=== PATIENT | female | born 1990 | race Caucasian/White ===

== ENCOUNTER 2016-05-08 18:56 | Emergency (ER) | payer OTHER ==
[2016-05-08] MEDS ORDERED: HYDROmorphone 1 MG/ML SYRINGE IVP STA (19:25)
[2016-05-08] MEDS ORDERED: METOCLOPRAMIDE 10 MG/2 ML VIAL IVP STA (19:25)
[2016-05-08] MEDS ORDERED: SODIUM CHLORIDE 0.9% 1,000 ML IV ONE (19:25)
[2016-05-08] MEDS ORDERED: HYDROmorphone 1 MG/ML SYRINGE ONE (19:33)
[2016-05-08] MEDS ORDERED: METOCLOPRAMIDE 10 MG/2 ML VIAL IVP ONE (19:33)
[2016-05-08] MEDS ORDERED: ONDANSETRON 4 MG/2 ML VIAL ONE (21:35)
[2016-05-08] MEDS ORDERED: IOPAMIDOL-300 100 ML VIAL IVP ONE (21:39)
[2016-05-08] MEDS ORDERED: ONDANSETRON 4 MG/2 ML VIAL IVP STA (21:47)
[2016-05-08] MEDS ORDERED: KETOROLAC 60 MG/2 ML VIAL IVP STA (22:16)
[2016-05-08] MEDS ORDERED: PROMETHAZINE INJ 25 MG in SODIUM CHLORIDE 0.9% 50 ML IV STA (22:16)
[2016-05-08] MEDS ORDERED: KETOROLAC 30 MG/ML VIAL ONE (22:19)
[2016-05-08] MEDS ORDERED: PROMETHAZINE 25 MG/1 ML VIAL ONE (22:19)
[2016-05-08] MEDS ORDERED: ONDANSETRON ODT 4 MG Prepack 2 TL STA (23:08)
[2016-05-08] MEDS ORDERED: HYDROcod/ACET 5/325 Prepack 6 PO STA (23:08)
== END 2016-05-08 23:30 | disposition home or self-care (01) ==
DX: R10.84 Generalized abdominal pain (principal); R11.2 Nausea with vomiting, unspecified; Z98.890 Other specified postprocedural states; K21.9 Gastro-esophageal reflux disease without esophagitis
CPT/HCPCS: 36415; 74177; 80053; 81003; 81025; 83690; 85025; 93005; 93010; 96365; 96375; 99283; 99285; J1170; Q9967

== ENCOUNTER 2016-05-10 13:21 | Emergency (ER) | payer OTHER ==
[2016-05-10] MEDS ORDERED: SODIUM CHLORIDE 0.9% 1,000 ML IV ONE (13:45)
[2016-05-10] MEDS ORDERED: MORPHINE 2 MG/ML SYRINGE IVP STA (13:45)
[2016-05-10] MEDS ORDERED: ONDANSETRON 4 MG/2 ML VIAL IVP STA (13:46)
[2016-05-10] MEDS ORDERED: ONDANSETRON 4 MG/2 ML VIAL ONE (13:53)
[2016-05-10] MEDS ORDERED: MORPHINE 2 MG/ML SYRINGE ONE (13:53)
[2016-05-10] MEDS ORDERED: HYOSCYAMINE SL 0.125 MG TABLET SL STA (16:03)
[2016-05-10] MEDS ORDERED: SALINE ENEMA 133 ML BOTTLE RC STA (16:23)
[2016-05-10] MEDS ORDERED: oxyCOD/ACETAMIN 5 MG/325 MG TABLET PO STA (17:51)
[2016-05-10] MEDS ORDERED: oxyCOD/ACETAMIN 5 MG/325 MG TABLET PO ONE (17:54)
== END 2016-05-10 18:05 | disposition home or self-care (01) ==
DX: R10.32 Left lower quadrant pain (principal); Z98.890 Other specified postprocedural states; R03.0 Elevated blood-pressure reading, without diagnosis of hypertension; K21.9 Gastro-esophageal reflux disease without esophagitis
CPT/HCPCS: 36415; 74022; 80053; 81003; 83690; 85025; 96374; 96375; 99283; 99284; A9270

== ENCOUNTER 2019-04-15 07:44 | Outpatient (CLI) | payer OTHER ==
--- NOTE | 2019-04-15 15:39 | MRI Report ---
Reason: PAIN IN LT FOOT Procedure Date: 04/15/2019 Accession Number: [id number] / [id number] Procedure: MRI - Foot LT W/O CPT Code: Final Report FULL RESULT: EXAM: LEFT MIDFOOT MRI WITHOUT CONTRAST EXAM DATE: 04/15/2019 09:29 AM. CLINICAL HISTORY: Pain in left foot. COMPARISON: None. TECHNIQUE: Multiplanar, multisequence T1-weighted and fluid-sensitive sequences of the midfoot without contrast. Other: None. FINDINGS: Bones and articular surfaces: No significant joint effusion. No osteochondral lesions. No significant articular cartilage defects. Marrow signal appears normal. No fracture identified. Musculotendinous structures: Visualized flexor and extensor tendons appear intact without significant tendinosis or tenosynovitis. No significant muscle edema, atrophy or fatty replacement within the field of view. Ligaments: The anterior and posterior talofibular, calcaneofibular and deltoid ligaments appear intact. IMPRESSION: No MRI abnormalities in the midfoot. RADIA
== END 2019-04-15 07:45 | disposition home or self-care (01) ==
LOC: DI 07:44
PROVIDERS: ATTEND Family Medicine
DX: M79.672 Pain in left foot (principal)

== ENCOUNTER 2019-08-24 08:52 | Outpatient (CLI) | payer OTHER ==
--- NOTE | 2019-08-24 10:33 | MRI Report ---
PROCEDURE: Lumbar Spine W/O INDICATIONS: PAIN IN LT LOWER LEG TECHNIQUE: Noncontrast sagittal T1 spin echo and T2 fast echo, coronal T2, sagittal STIR, axial T1 and T2 fast s pin echo through the lumbar spine. COMPARISON: Plain films of the abdomen dated 05.10.16 FINDINGS: Image quality: Excellent. Alignment and Curvature: 5 lumbar type vertebral bodies are present by plain film. Alignment is reno l. Bone Marrow: Marrow is of normal overall signal. No acute vertebral body compression fractures. Spinal Cord: Conus medullaris terminates at the L1-L2 disc space level. Visualized cord demonstrate s normal signal and size. Paraspinous Soft Tissues: No paravertebral masses. T12-L1: Normal in appearance. L1-L2: Normal in appearance. L2-L3: Normal in appearance. L3-L4: Mild facet hypertrophy. No significant canal, nor foraminal stenosis. L4-L5: Mild facet and ligament flavum hypertrophy. No significant canal, nor foraminal stenosis. L5-S1: Mild facet hypertrophy. No significant canal, nor foraminal stenosis. IMPRESSION: Mild mid/lower lumbar facet osteoarthritis without significant associated canal, nor for aminal stenosis. No neural impingement. Reviewed by: Wild Sahu MD on 08/24/2019 10:32 AM PDT Approved by: Wild Sahu MD on 08/24/2019 10:32 AM PDT Station ID: [id number]
== END 2019-08-24 08:53 | disposition home or self-care (01) ==
LOC: DI 08:52
PROVIDERS: ATTEND Family Medicine
DX: M47.816 Spondylosis without myelopathy or radiculopathy, lumbar region (principal); M79.662 Pain in left lower leg
CPT/HCPCS: 72148

== ENCOUNTER 2019-10-15 09:17 | Emergency (ER) | payer OTHER ==
[2019-10-15 09:54] LABS: BASOPHILS % (AUTO) 0.1 %; EOSINOPHILS # (AUTO) 0.1 10^3/uL (0.0-0.7); EOSINOPHILS % (AUTO) 1.6 %; HGB - HEMOGLOBIN 13.7 g/dL (12.0-16.0); LYMPHOCYTES # (AUTO) 2.4 10^3/uL (1.5-3.5); LYMPHOCYTES % (AUTO) 35.5 %; MEAN CORPUSCULAR HEMOGLOBIN 30.9 pg (27.0-31.0); MEAN CORPUSCULAR HGB CONC 34.4 g/dL (32.0-36.0); MEAN CORPUSCULAR VOLUME 89.6 fL (81.0-99.0); MEAN PLATELET VOLUME 9.4 fL (7.9-10.8); MONOCYTES # (AUTO) 0.5 10^3/uL (0.0-1.0); MONOCYTES % (AUTO) 7.8 %; NEUTROPHILS # (AUTO) 3.7 10^3/uL (1.5-6.6); NEUTROPHILS % (AUTO) 54.4 %; PLT - PLATELET COUNT 281 10^3/uL (130-450); RED BLOOD COUNT 4.44 10^6/uL (4.20-5.40); RED CELL DISTRIBUTION WIDTH 12.5 % (12.0-15.0); WHITE BLOOD COUNT 6.8 x10^3/uL (4.8-10.8)
[2019-10-15 09:57] LABS: BILIRUBIN,URINE NEGATIVE (NEGATIVE); GLUCOSE, URINE (UA) NEGATIVE (NEGATIVE); KETONES,URINE (UA) NEGATIVE (NEGATIVE); LEUKOCYTE ESTERASE, URINE NEGATIVE (NEGATIVE); NITRITE,URINE NEGATIVE (NEGATIVE); OCCULT BLOOD,URINE MODERATE (NEGATIVE); PROTEIN,URINE NEGATIVE (NEGATIVE); UROBILINOGEN,URINE 0.2 (NORMAL) E.U./dL (NORMAL)
[2019-10-15 09:59] LABS: CLARITY,URINE CLEAR (CLEAR)
[2019-10-15 10:09] LABS: ALBUMIN 4.2 g/dL (3.2-5.5); ALBUMIN/GLOBULIN RATIO 1.2 (1.0-2.2); BILIRUBIN,TOTAL 0.4 mg/dL (0.2-1.0); CALCIUM 9.4 mg/dL (8.5-10.3); CREATININE 0.7 mg/dL (0.4-1.0); TOTAL PROTEIN 7.7 g/dL (6.7-8.2)
[2019-10-15 10:11] LABS: BACTERIA,URINE Few /HPF (None Seen); SQUAMOUS EPITHELIAL CELL,UR FEW Squamous (<= Few)
--- NOTE | 2019-10-15 10:12 | ED Physician Documentation ---
PD HPI FEMALE - Stated complaint Stated Complaint: BLEEDING - Chief complaint Chief Complaint: Abd Pain - History obtained from History obtained from: Patient, Family - History of Present Illness Timing - onset: Yesterday Timing - duration: Days (2) Timing - details: Gradual onset, Still present Associated symptoms: Pelvic pain, Vaginal bleeding Contributing factors: OB-BDC MANAGER History: G (1), P (0) Similar symptoms before: Has not had sx before Recently seen: Clinic - Additional information Additional information: 29-year-old 1 para 0 at her last menstrual period on September 08, 2019 and she has been having irregular periods. She has not noticed much in the way of breast tenderness she has had morning sickness she has had a positive test 2 weeks ago. She has had a repeat urine test test. She has not had ultrasound with this . She began to develop some bleeding and cramping yesterday and had scant amounts today she has a fair amount of blood on the tissue. She continues have some cramping especially on the right side. She has a family history of a mother who has had multiple miscarriages (8) and had ectopic requiring removal of the tube. Review of Systems Constitutional: denies: Fever, Chills Eyes: denies: Decreased vision Ears: denies: Ear pain Nose: denies: Congestion Throat: denies: Sore throat Cardiac: denies: Chest pain / pressure Respiratory: denies: Dyspnea, Cough GI: reports: Nausea. denies: Abdominal Pain, Vomiting : reports: Dysuria, Frequency (similar to always with interstitial cystitis.) Skin: denies: Rash PD PAST MEDICAL HISTORY - Past Medical History Past Medical History: Yes Neuro: Head injury GI: GERD - Past Surgical History Past Surgical History: Yes General: Colonoscopy /BDC MANAGER: Endometrial ablation - Present Medications Home Medications: Ambulatory Orders Medication Instructions Recorded Confirmed Hydrocodone/Acetaminophen 1 - 2 each PO Q6H PRN #8 tablet 05/10/16 [Hydrocodon-Acetaminophen 5-325] Hydrocodone/Acetaminophen [Vicodin 0 mg PO .FREQ 05/10/16 05/10/16 5-300 mg Tablet] Omeprazole 10 mg PO DAILY 05/10/16 05/10/16 Ondansetron Odt [Zofran Odt] 0 mg PO .FREQ 05/10/16 05/10/16 Ondansetron Odt [Zofran] 4 mg TL Q6H PRN #10 tablet 05/10/16 - Allergies Allergies/Adverse Reactions: Allergies Allergy/AdvReac Type Severity Reaction Status Date / Time morphine AdvReac Emesis Verified 10/15/19 09:30 - Social History Does the pt smoke?: No Smoking Status: Never smoker Does the pt drink ETOH?: No Does the pt have substance abuse?: No - Immunizations Immunizations are current?: Yes - POLST Patient has POLST: No PD ED PE NORMAL - Vitals Vital signs reviewed: Yes (normal ) - General General: Alert and oriented X 3, Well developed/nourished, Other (nervous appearing stuttering ) - HEENT HEENT: Atraumatic, PERRL, EOMI - Cardiac Cardiac: RRR, No murmur - Respiratory Respiratory: No respiratory distress, Clear bilaterally - Abdomen Abdomen: Normal bowel sounds, Soft, Non distended, No organomegaly, Other (mild suprapubic tenderness ) - Back Back: No CVA TTP, No spinal TTP - Derm Derm: Normal color, Warm and dry, No rash - Extremities Extremities: No deformity, No edema - Neuro Neuro: Alert and oriented X 3, family physician 2-12 intact, No motor deficit, No sensory deficit, Normal speech Eye Opening: Spontaneous Motor: Obeys Commands Verbal: Oriented GCS Score: 15 - Psych Psych: Normal affect, Other (mood is anxious) Results - Vitals Vitals: Vital Signs - 24 hr 10/15/19 09:26 Temperature 36.9 C Heart Rate 90 Respiratory 16 Rate Blood Pressure 113/76 O2 Saturation 99 Oxygen O2 Source Room air - Labs Labs: Laboratory Tests 10/15/19 10/15/19 10/15/19 09:39 09:49 09:49 WBC 6.8 RBC 4.44 Hgb 13.7 Hct 39.8 MCV 89.6 MCH 30.9 MCHC 34.4 RDW 12.5 Plt Count 281 MPV 9.4 Neut # (Auto) 3.7 Lymph # (Auto) 2.4 Cooke # (Auto) 0.5 Eos # (Auto) 0.1 Baso # (Auto) 0.0 Absolute Nucleated RBC 0.00 Nucleated RBC % 0.0 Sodium 136 Potassium 3.5 Chloride 106 Carbon Dioxide 21 Anion Gap 9.0 BUN 14 Creatinine 0.7 Estimated GFR (MDRD) 100 Glucose 100 Calcium 9.4 Total Bilirubin 0.4 AST 17 ALT 20 Alkaline Phosphatase 43 Total Protein 7.7 Albumin 4.2 Globulin 3.5 Albumin/Globulin Ratio 1.2 Lipase 41 HCG, Quant Urine Color YELLOW Urine Clarity CLEAR Urine pH 6.0 Ur Specific [place]ork 1.025 Urine Protein NEGATIVE Urine Glucose (UA) NEGATIVE Urine Ketones NEGATIVE Urine Occult Blood MODERATE H Urine Nitrite NEGATIVE Urine Bilirubin NEGATIVE Urine Urobilinogen 0.2 (NORMAL) Ur Leukocyte Esterase NEGATIVE Urine RBC 6-10 H Urine WBC 0-3 Ur Squamous Epith Cells FEW Squamous Urine Bacteria Few Ur Microscopic Review INDICATED Urine Culture Comments NOT INDICATED 10/15/19 09:49 WBC RBC Hgb Hct MCV MCH MCHC RDW Plt Count MPV Neut # (Auto) Lymph # (Auto) Cooke # (Auto) Eos # (Auto) Baso # (Auto) Absolute Nucleated RBC Nucleated RBC % Sodium Potassium Chloride Carbon Dioxide Anion Gap BUN Creatinine Estimated GFR (MDRD) Glucose Calcium Total Bilirubin AST ALT Alkaline Phosphatase Total Protein Albumin Globulin Albumin/Globulin Ratio Lipase HCG, Quant 155.76 Urine Color Urine Clarity Urine pH Ur Specific Fork Urine Protein Urine Glucose (UA) Urine Ketones Urine Occult Blood Urine Nitrite Urine Bilirubin Urine Urobilinogen Ur Leukocyte Esterase Urine RBC Urine WBC Ur Squamous Epith Cells Urine Bacteria Ur Microscopic Review Urine Culture Comments Procedures - Bedside sono Bedside sono by EMP: With use of bedside ultrasound I was not able to image the uterus with an empty bladder and I was not able to make sense of the images on the screen. We have requested formal ultrasound PD MEDICAL DECISION MAKING - ED course Complexity details: reviewed results, re-evaluated patient, considered differential, d/w patient, d/w family ED course: 29-year-old female with early is a very low quantitative hCG she is having symptoms of bleeding and pain and we are not able to identify a within the uterus. There are no other signs or symptoms to be concerned about rupture and the quant is too low to have a sizable fetus. We will have the patient repeat her hCG and follow-up with her primary. Departure - Departure Disposition: 01 Home, Self Care Clinical Impression: Threatened in early Condition: Stable Instructions: ED Miscarriage Poss, ED Abdominal Pain Rule Out Ectopic Follow-Up: ENOCH CROCKER ARNP [Primary Care Provider] - Comments: Today your quantitative hCG was 155. This is a very low number and we were unable to see any evidence of a fetus. This is either extremely early , a failed or a failed ectopic . It is imperative to have a second hCG done in 2 days time. Call your provider and have them make an order for this hCG.
[2019-10-15 13:07] VITALS: BP 132/78
--- NOTE | 2019-10-15 13:31 | Ultrasound Report ---
PROCEDURE: OB First Trimester INDICATIONS: 6wks bleeding cramping OUTSIDE/PRIOR DATING DATA: Last menstrual period (LMP): 09/08/2019. LMP-based estimated date of delivery (CIERRA): 06/14/2020. First dating scan (date and location): N/A. Estimated date of delivery ([facility]ER[facility]) from first dating scan: N/A TECHNIQUE: Real-time scanning was performed of the fetus and maternal pelvic organs, with image documentation. COMPARISON: None from this FINDINGS: Embryo: No intrauterine gestational sac is seen. Measurement variability in dating: +/- 4 weeks by LMP, +/- 7 days by mean sac diameter (use before 6 weeks gestation if crown-rump length not able to be measured), +/- 5 days by crown-rump length (6-12 weeks gestation). Maternal organs: The left ovary is not seen. The right ovary is unremarkable. Along the posterior asp ect of the uterus, there is an exophytic fibroid that measures 2.1 x 1.7 x 2.5 cm. No adnexal masses are seen on either side. Limited images through the kidneys demonstrate no hydronephrosis. IMPRESSION: No findings of an intrauterine are seen. A completed spontaneous miscarriage is most likely, although differential diagnosis includes ectopic and early intrauterine . Close clinical follow-up with serial beta hCG measurements are recommended, as clinically appropriate . 2.5 cm uterine fibroid noted posteriorly. Note: Concordant preliminary findings given by the cookie mixer helper upon the completion of the examination to Dr. Asher at 12:15 PM on 10/15/2019 Reviewed by: Trip George MD on 10/15/2019 12:29 PM DOROTEO Approved by: Trip George MD on 10/15/2019 12:29 PM DOROTEO Station ID: [id number]
--- NOTE | 2019-10-15 13:33 | Ultrasound Report ---
PROCEDURE: OB Transvaginal INDICATIONS: 6wks bleeding cramping OUTSIDE/PRIOR DATING DATA: Last menstrual period (LMP): 09/08/2019. LMP-based estimated date of delive ry (CIERRA): 06/14/2020. First dating scan (date and location): N/A. Estimated date of delivery (CIER[facility]) fro m first dating scan: N/A TECHNIQUE: Real-time scanning was performed of the fetus and maternal pelvi c organs, with image documentation. COMPARISON: None from this FINDINGS: Embryo: No intr auterine gestational sac is seen. Measurement variability in dating: +/- 4 weeks by LMP, +/- 7 days by mean sac diameter (use before 6 weeks gestation if crown-rump length not able to be measured), +/- 5 days by crown-rump length (6-12 weeks gestation). Maternal organs: The left ovary is not seen. Th e right ovary is unremarkable. Along the posterior aspect of the uterus, there is an exophytic fibroi d that measures 2.1 x 1.7 x 2.5 cm. No adnexal masses are seen on either side. Limited images through the kidneys demonstrate no hydronephrosis. IMPRESSION: No findings of an intrauterine are seen. A completed spontaneous miscarriage is most likely, although differential diagnosis includes ectopic and early intrauterine . Close clinical follow-up with serial beta hCG measureme nts are recommended, as clinically appropriate. 2.5 cm uterine fibroid noted posteriorly. Note: C oncordant preliminary findings given by the nuclear reactor technician upon the completion of the examination to Dr. Asher at 12:15 PM on 10/15/2019 Reviewed by: Trip George MD on 10/15/2019 12:31 PM DOROTEO Approved by: Trip George MD on 10/15/2019 12:31 PM AKMANA Station ID: [id number]
== END 2019-10-15 13:16 | disposition home or self-care (01) ==
LOC: ED 09:17
DX: O20.0 Threatened abortion (principal); Z3A.01 Less than 8 weeks gestation of pregnancy
CPT/HCPCS: 36415; 76801; 76817; 80053; 81001; 81003; 83690; 84702; 85025; 87086; 99283; 99284